=== PATIENT | female | born 1975 | race Caucasian/White ===

== ENCOUNTER → 2016-09-10 | Outpatient (CLI) | payer BC ==
[~2016-09-10] MED LIST: PRENATAL VITAMI1 TA5 PO; PROTONIX20 MG PO
== END ==
LOC: MC.RAD 08:28
DX: N60.31 Fibrosclerosis of right breast (principal)

== ENCOUNTER 2017-07-01 17:14 | Emergency (ER) | payer BC ==
[~2017-07-01] VITALS: Ht 165.1 cm; Wt 86.4 kg
[2017-07-01 18:03] LABS: COLLECTION METHOD CLEAN CATCH
[2017-07-01 18:07] LABS: BASO # 0.1 (0.0-0.2); BASO % 0.3 % (0.0-2.0); EOS # 0.1 (0.0-0.7); EOS % 0.4 % (0-4.0); GRAN # 14.8 (1.4-6.5); GRAN % 80.4 % (42.2-75.2); HEMATOCRIT 41.8 % (37.0-47.0); LYMPH # 2.6 (1.2-3.4); LYMPH % 14.2 % (20.0-51.0); MEAN CELL VOLUME 93 fl (80.0-100.0); MEAN CORPUSCULAR HEMOGLOBIN 31 pg (27.0-31.0); MEAN CORPUSCULAR HGB CONC 34 g/dl (33.0-37.0); MEAN PLATELET VOLUME 10.7 fl (7.4-10.4); MONO # 0.8 (0.1-0.6); MONO % 4.3 % (1.7-9.3); PLATELET COUNT 274 K/mm3 (130-400); RED BLOOD COUNT 4.48 M/mm3 (4.10-5.30); REDCELL DISTRIBUTION WIDTH-CV 12.5 % (11.5-14.5)
[2017-07-01] MEDS ORDERED: MULTI VITAMINS1 TAB PO (18:13)
[2017-07-01] MEDS ORDERED: FLONASE NASAL S16 GM NS (18:13)
[2017-07-01] MEDS ORDERED: ALLEGRA 180MG180 MG PO (18:13)
[2017-07-01] MEDS ORDERED: VITAMIN C500 MG PO (18:13)
[2017-07-01 18:19] LABS: MUCOUS Present /lpf; PH 5 (5-8); URINE APPEARANCE Cloudy; URINE BACTERIA Rare /hpf; URINE BILIRUBIN Negative (NEGATIVE); URINE BLOOD Negative (NEGATIVE); URINE COLOR Yellow; URINE GLUCOSE Negative (NEGATIVE); URINE KETONE 1+ (NEGATIVE); URINE LEUKOCYTE ESTERASE 2+ (NEGATIVE); URINE NITRATE Negative (NEGATIVE); URINE PROTEIN(semi-quant) Negative (NEGATIVE); URINE UROBILINOGEN Negative (NEGATIVE)
[2017-07-01 18:22] LABS: ALBUMIN 4.9 gm/dL (3.5-5.0); BILIRUBIN,TOTAL 0.9 mg/dL (0.0-1.0); CALCIUM 9.5 mg/dL (8.4-10.2); CREATININE, serum 0.99 mg/dL (0.52-1.25); POTASSIUM 4.2 mmol/L (3.4-5.0); TOTAL PROTEIN 8.4 gm/dL (6.4-8.2)
[2017-07-01] MEDS ORDERED: FLOMAX 0.40.4 MG/CAP PO (19:31)
[2017-07-01] MEDS ORDERED: ZOFRAN ODT4 MG PO (19:31)
[2017-07-01] MEDS ORDERED: PERCOCET 325 MG1 TA2 PO (19:31)
[2017-07-01] MEDS ORDERED: LEVAQUIN 5500 MG/TA1 PO (19:31)
[2017-07-01 19:36] VITALS: BP 117/74; PULSE 69; TEMP 97.3
== END 2017-07-01 19:43 | disposition home or self-care (01) ==
LOC: COL.ER 17:14
PROVIDERS: Nurse Practitioner
DX: N20.0 Calculus of kidney (principal); Z90.710 Acquired absence of both cervix and uterus
CPT/HCPCS: J1885; J2270; J2405; J7030; Q9967

== ENCOUNTER 2017-07-02 15:05 | Day surgery (SDC) | payer BC ==
[~2017-07-02] VITALS: Ht 165.1 cm; Wt 89.5 kg
[2017-07-02] VITALS (7 sets, daily range): BP systolic 93–106; BP diastolic 41–63; PULSE 58–79; TEMP 98.1–98.5
[~2017-07-02 15:05] MED LIST changes: +ALLEGRA 180MG180 MG PO; +FLOMAX 0.40.4 MG/CAP PO; +FLONASE NASAL S16 GM NS; +LEVAQUIN 5500 MG/TA1 PO; +MULTI VITAMINS1 TAB PO; +PERCOCET 325 MG1 TA2 PO; +VITAMIN C500 MG PO; +ZOFRAN ODT4 MG PO
[2017-07-02 15:49] LABS: BASO % 0.2 % (0.0-2.0); EOS # 0.1 (0.0-0.7); EOS % 0.5 % (0-4.0); GRAN # 9.6 (1.4-6.5); GRAN % 76.6 % (42.2-75.2); HEMOGLOBIN 12.4 g/dl (12.5-16.0); LYMPH % 15.8 % (20.0-51.0); MEAN CELL VOLUME 92 fl (80.0-100.0); MEAN CORPUSCULAR HEMOGLOBIN 31 pg (27.0-31.0); MEAN CORPUSCULAR HGB CONC 34 g/dl (33.0-37.0); MEAN PLATELET VOLUME 10.7 fl (7.4-10.4); MONO # 0.8 (0.1-0.6); MONO % 6.3 % (1.7-9.3); PLATELET COUNT 210 K/mm3 (130-400); RED BLOOD COUNT 3.99 M/mm3 (4.10-5.30); REDCELL DISTRIBUTION WIDTH-CV 12.5 % (11.5-14.5)
[2017-07-02 15:50] LABS: HEMATOCRIT 36.7 % (37.0-47.0)
== END 2017-07-02 21:15 | disposition home or self-care (01) ==
LOC: SDCO 15:05 → SURG 18:00 → SDCO 21:15
PROVIDERS: Urology
DX: N20.1 Calculus of ureter (principal); Z90.710 Acquired absence of both cervix and uterus
CPT/HCPCS: OP; C1769; J0690; J1100; J2405; J2704; J3010; J7120; Q9967

== ENCOUNTER → 2024-02-01 | Outpatient (CLI) | payer BC | LOC: COL.RAD 13:36 | DX: M79.602 Pain in left arm (principal) ==